=== PATIENT | female | born 1925 | race Caucasian/White ===

== ENCOUNTER → 2016-06-11 | Outpatient (CLI) | payer MEDICARE | LOC: MHCPAIN 08:14 | DX: G89.29 Other chronic pain (principal); M47.27 Other spondylosis with radiculopathy, lumbosacral region; M43.17 Spondylolisthesis, lumbosacral region; M25.562 Pain in left knee | CPT/HCPCS: G0463 ==

== ENCOUNTER → 2016-06-19 | Outpatient (CLI) | payer MEDICARE | LOC: MHCPAIN 12:54 | DX: M47.817 Spondylosis without myelopathy or radiculopathy, lumbosacral region (principal) | CPT/HCPCS: J1100; Q9967 ==

== ENCOUNTER → 2016-07-16 | Outpatient (CLI) | payer MEDICARE | LOC: MHCPAIN 12:38 | DX: G89.29 Other chronic pain (principal); M47.817 Spondylosis without myelopathy or radiculopathy, lumbosacral region; M54.16 Radiculopathy, lumbar region; M17.0 Bilateral primary osteoarthritis of knee | CPT/HCPCS: G0463 ==